=== PATIENT | male | born 1975 | race Caucasian/White ===

== ENCOUNTER 2016-10-18 08:35 | Emergency (ER) | payer BC, SELFPAY ==
[~2016-10-18 08:35] MED LIST: DOCUSATE SODIU250 MG PO; HYDROCHLOROTHIA25 MG PO; NAPROSYN EC 50500 MG PO; NEURONTIN 300300 MG PO; NORVASC 5 MG TAB5 MG PO; PERCOCET 5-3251 EACH PO; PHENERGAN 12.12.5 M1 PO; TENORMIN 50 MG50 MG PO
[2016-10-18 09:39] LABS: HEMOGLOBIN 14.2 gm/dl (14.0-17.5); RED BLOOD COUNT 4.39 M/UL (4.20-5.50); WHITE BLOOD COUNT 12.3 K/UL (4.5-11.0)
[2016-10-18 10:00] LABS: BUN/CREATININE RATIO 14 (0-10)
== END 2016-10-18 12:00 | disposition home or self-care (01) ==
LOC: ER1 08:35
PROVIDERS: Emergency Medicine
DX: J20.9 Acute bronchitis, unspecified (principal); T14.8 Other injury of unspecified body region; F17.200 Nicotine dependence, unspecified, uncomplicated; W57.XXXA Bitten or stung by nonvenomous insect and other nonvenomous arthropods, initial encounter
CPT/HCPCS: 36415; 71020; 80053; 82550; 82553; 83605; 83874; 84484; 85025; 87040; 93005; 94664; 96361; 96365; 96375; 99285; J2543; J2930; J7050

== ENCOUNTER 2016-10-24 04:08 | Emergency (ER) | payer BC, SELFPAY ==
[2016-10-24 05:10] LABS: RED BLOOD COUNT 4.37 M/UL (4.20-5.50); WHITE BLOOD COUNT 11.6 K/UL (4.5-11.0)
[2016-10-24 05:35] LABS: BUN/CREATININE RATIO 13 (0-10)
== END 2016-10-24 06:40 | disposition home or self-care (01) ==
LOC: ER1 04:08
PROVIDERS: Emergency Medicine
DX: A41.9 Sepsis, unspecified organism (principal); J18.9 Pneumonia, unspecified organism; Z88.0 Allergy status to penicillin
CPT/HCPCS: 36415; 71020; 80053; 83605; 83690; 85025; 87040; 87081; 87880; 96360; 99283

== ENCOUNTER 2016-10-27 17:42 | Emergency (ER) | payer BC, SELFPAY ==
[2016-10-27 21:51] LABS: HEMOGLOBIN 12.2 gm/dl (14.0-17.5); RED BLOOD COUNT 3.86 M/UL (4.20-5.50); WHITE BLOOD COUNT 7.7 K/UL (4.5-11.0)
[2016-10-27 22:04] LABS: BUN/CREATININE RATIO 13 (0-10)
== END 2016-10-28 03:25 | disposition home or self-care (01) ==
LOC: ER1 17:42
PROVIDERS: Emergency Medicine
DX: J40 Bronchitis, not specified as acute or chronic (principal); I10 Essential (primary) hypertension; F17.200 Nicotine dependence, unspecified, uncomplicated; Z88.0 Allergy status to penicillin
CPT/HCPCS: 36415; 71020; 80053; 81001; 82550; 82553; 83605; 83690; 83874; 84484; 85025; 87040; 87086; 93005; 99284